=== PATIENT | male | born 1985 | race Caucasian/White ===

== ENCOUNTER 2019-11-03 22:51 | Emergency (ER) | payer BC ==
[2019-11-04] MEDS: Famotidine 20 MG Tab PO ONE (00:03)
--- NOTE | 2019-11-04 01:25 | EDM.PDOC ---
ED HPI GENERAL MEDICAL PROBLEM - General Chief Complaint: Abdominal Pain Stated Complaint: STOMACH AND BACK PAIN Time Seen by Provider: 11/03/19 23:30 Source of Information: Reports: Patient, Family History Limitations: Reports: No Limitations - History of Present Illness INITIAL COMMENTS - FREE TEXT/NARRATIVE: Patient presents to the ER with abdominal pain. Patient states he has had this discomfort off and on for the last few months. He had his yearly physical with his PCP in August and was told to try Pepcid and Prilosec. Patient states he has been taking Prilosec for the last 2 days. He states he has has this discomfort for the last 4 days off and on. States it is worse at night when he lays down. It will improve with ibuprofen and Tums and if he sits in a recliner. Patient denies chest pain, palpitations, arm pain, SOB, cough, wheezing, diarrhea or constipation. Patient states at this time he is not having the epigastric discomfort. Onset: Gradual Onset Date: 11/01/19 Duration: Getting Worse Location: Reports: Chest, Abdomen Severity: Moderate Improves with: Reports: Other (sitting up ) Worsens with: Reports: Other (laying down, at night ) Associated Symptoms: Reports: No Other Symptoms - Related Data Allergies Allergy/AdvReac Type Severity Reaction Status Date / Time No Known Allergies Allergy Verified 11/03/19 23:42 ED ROS GENERAL - Review of Systems Review Of Systems: See Below Constitutional: Reports: No Symptoms. Denies: Fever, Chills, Malaise, Weakness , Diaphoresis, Decreased Appetite HEENT: Reports: No Symptoms Respiratory: Reports: No Symptoms. Denies: Shortness of Breath, Wheezing, Pleuritic Chest Pain, Cough, Sputum Cardiovascular: Reports: No Symptoms. Denies: Chest Pain, Blood Pressure Problem, Dyspnea on Exertion, Edema, Lightheadedness, Palpitations, Syncope Endocrine: Reports: No Symptoms GI/Abdominal: Reports: Abdominal Pain, Black Stool, Bloody Stool, Constipation, Diarrhea, Distension, Nausea, Vomiting : Reports: No Symptoms Musculoskeletal: Reports: No Symptoms Skin: Reports: No Symptoms Neurological: Reports: No Symptoms Psychiatric: Reports: No Symptoms Hematologic/Lymphatic: Reports: No Symptoms Immunologic: Reports: No Symptoms ED EXAM, GENERAL - Physical Exam Exam: See Below Exam Limited By: No Limitations General Appearance: Alert, WD/WN, No Apparent Distress Eye Exam: Bilateral Eye: EOMI Ears: Normal External Exam Nose: Normal Inspection, Normal Mucosa, No Blood Throat/Mouth: Normal Inspection Head: Atraumatic, Normocephalic Neck: Normal Inspection, Supple, Full Range of Motion Respiratory/Chest: No Respiratory Distress, Lungs Clear, Normal Breath Sounds, Chest Non-Tender Cardiovascular: Normal Peripheral Pulses, Regular Rate, Rhythm, No Edema, No Murmur Peripheral Pulses: 2+: Radial (L), Radial (R) GI/Abdominal: Normal Bowel Sounds, Soft, Non-Tender, No Organomegaly, No Distention, No Mass (Male) Exam: Deferred Rectal (Males) Exam: Deferred Back Exam: Normal Inspection, Full Range of Motion Extremities: Normal Inspection, Normal Range of Motion Neurological: Alert, Oriented, CN II-XII Intact, Normal Cognition, Normal Gait, Normal Reflexes, No Motor/Sensory Deficits Psychiatric: Normal Affect, Normal Mood Skin Exam: Warm, Dry, Intact, Normal Color, No Rash Lymphatic: No Adenopathy Course - Orders/Labs/Meds Orders: Active Orders 24 hr Category Date Time Status EKG Documentation Completion [RC] STAT Care 11/03/19 23:43 Active Meds: Medications Discontinued Medications Generic Name Dose Route Start Last Admin Trade Name Freq PRN Reason Stop Dose Admin Famotidine 20 mg 11/03/19 23:57 11/04/19 00:03 Pepcid PO 11/03/19 23:58 20 mg ONETIME ONE Administration - Re-Assessments/Exams Free Text/Narrative Re-Assessment/Exam: 11/04/19 01:27 EKG NSR Departure - Departure Time of Disposition: 00:00 Disposition: Home, Self-Care 01 Condition: Good Clinical Impression: GERD (gastroesophageal reflux disease) - Discharge Information Instructions: Famotidine tablets or gelcaps, Heartburn, [id number] Referrals: Asher Soriano NP [Primary Care Provider] - Forms: ED Department Discharge Additional Instructions: Continue with Prilosec OTC Take pepcid 20mg every 12 hours as needed for pain relief, especially at bedtime. This usually starts to work within an hour or so. You can also take TUMs or milk of magnesia for acute pain relief. If having a flare-up you may want to sleep upright in a chair. Minimize consumption of spicy/acidic foods. Recheck in clinic in - days, sooner if continuing to have symptoms. - My Orders Last 24 Hours: My Active Orders 11/03/19 23:43 EKG Documentation Completion [RC] STAT - Assessment/Plan Last 24 Hours: My Active Orders 11/03/19 23:43 EKG Documentation Completion [RC] STAT Plan: Continue with Prilosec OTC Take pepcid 20mg every 12 hours as needed for pain relief, especially at bedtime. This usually starts to work within an hour or so. You can also take TUMs or milk of magnesia for acute pain relief. If having a flare-up you may want to sleep upright in a chair. Minimize consumption of spicy/acidic foods. Recheck in clinic in 10-14 days, sooner if continuing to have symptoms
== END 2019-11-04 00:07 | disposition home or self-care (01) ==
LOC: VM.ED 22:51
DX: K21.9 Gastro-esophageal reflux disease without esophagitis (principal)
CPT/HCPCS: 93005; 99284-25; A9270-GY